=== PATIENT | female | born 1945 | race Caucasian/White ===

== ENCOUNTER → 2016-11-13 | Outpatient (CLI) | payer MEDICARE | END | disposition home or self-care (01) | LOC: CFH 12:25 | PROVIDERS: ATTEND Internal Medicine | DX: N63 Unspecified lump in breast (principal); R92.8 Other abnormal and inconclusive findings on diagnostic imaging of breast | CPT/HCPCS: 76641; G0206 ==

== ENCOUNTER 2017-01-29 01:34 | Inpatient (IN) | payer MEDICARE ==
[~2017-01-29] VITALS: Ht 162.6 cm; Wt 76.2 kg
[2017-01-29] MEDS ORDERED: LISI40TA PO (01:59)
[2017-01-29] MEDS ORDERED: SIMV20TA3 PO (02:00)
[2017-01-29] MEDS ORDERED: AMLO5TAB2 PO (02:00)
[2017-01-29] MEDS ORDERED: HYDR-883 PO (02:02)
[2017-01-29] MEDS ORDERED: ESTR30CR TP (02:03)
[2017-01-29] MEDS ORDERED: HYDROmorphone 1 MG/ML, 1ML ONE (02:25)
[2017-01-29] MEDS ORDERED: ONDANSETRON 2MG/ML, 2ML ONE (02:27)
[2017-01-29] MEDS ORDERED: ONDANSETRON 2MG/ML, 2ML IVPush ONE (02:30)
[2017-01-29] MEDS ORDERED: SODIUM CHLORIDE 0.9% 1,000ML IVBOLUS ONE (02:30)
[2017-01-29] MEDS ORDERED: SODIUM CHLORIDE FLUSH 10ML SYR IVF ONE (02:30)
[2017-01-29] MEDS ORDERED: ONDANSETRON ODT 4 MG PO ONE (02:30)
[2017-01-29] MEDS ORDERED: HYDROmorphone 1 MG/ML, 1ML IV ONE (02:30)
[2017-01-29] MEDS ORDERED: hydrALAzine 20 MG/ML, 1ML IVPush PRN (04:00)
[2017-01-29] MEDS ORDERED: OXYcodone IR 5MG TABLET PO PRN (04:00)
[2017-01-29 04:15] VITALS: BP 149/82
[2017-01-29] MEDS: ACETAMINOPHEN 325 MG TABLET PO PRN ×4 (04:34→21:04)
[2017-01-29] MEDS: SODIUM CHLORIDE 0.9% 1,000 ML IV SCH ×2 (04:34→13:39)
[2017-01-29 06:34] VITALS: BP 146/82
[2017-01-29] MEDS: morphine SULFATE 10 MG/ML, 1ML IVPush PRN ×2 (07:21→11:48)
[2017-01-29] MEDS: ONDANSETRON 2MG/ML, 2ML IVPush PRN (08:41)
[2017-01-29] MEDS: ESTROGENS CONJUGATED VAG CRM 0.625MG/1G, 30GM VG SCH (08:43)
[2017-01-29] MEDS: POLYETHYLENE GLYCOL 17 GM PACKET PO SCH (09:00)
[2017-01-29] MEDS: AMLODIPINE 5 MG TABLET PO SCH (10:46)
[2017-01-29] MEDS: LISINOPRIL 20 MG TABLET PO SCH (10:46)
[2017-01-29] MEDS: SENNA/DOCUSATE TABLET PO SCH (10:46)
[2017-01-29 14:39] VITALS: BP 152/82
[2017-01-29 20:05] VITALS: BP 155/78
[2017-01-29] MEDS ORDERED: SIMVASTATIN 20 MG TABLET PO SCH (21:00)
[2017-01-30] MEDS: ACETAMINOPHEN 325 MG TABLET PO PRN ×2 (00:59→07:25)
[2017-01-30 03:22] VITALS: BP 159/78
[2017-01-30 07:55] VITALS: BP 148/88
[2017-01-30] MEDS: POLYETHYLENE GLYCOL 17 GM PACKET PO SCH (08:32)
[2017-01-30] MEDS: LISINOPRIL 20 MG TABLET PO SCH (08:33)
[2017-01-30] MEDS: AMLODIPINE 5 MG TABLET PO SCH (08:33)
[2017-01-30] MEDS: SENNA/DOCUSATE TABLET PO SCH (08:34)
[2017-01-30] MEDS: ESTROGENS CONJUGATED VAG CRM 0.625MG/1G, 30GM VG SCH (08:34)
[2017-01-30 12:40] VITALS: BP 146/77
[2017-01-30] MEDS: ONDANSETRON 2MG/ML, 2ML IVPush PRN (12:55)
[2017-01-30] MEDS: HYDROcodone/APAP 5/325 TABLET PO PRN ×2 (13:34→16:10)
[2017-01-30] MEDS ORDERED: ONDA4TAB12 PO (15:54)
== END 2017-01-30 16:42 | disposition home or self-care (01) | DRG 563 ==
LOC: ED 01:54 → EDIP 03:10 → 4NOR 04:05 → DCLOUNGE 01-30 16:30 → UNDODISIN 01-30 16:35
PROVIDERS: ADMIT Hospitalist; ATTEND Hospitalist
DX: S42.251A Displaced fracture of greater tuberosity of right humerus, initial encounter for closed fracture (principal); E78.00 Pure hypercholesterolemia, unspecified; S42.202A Unspecified fracture of upper end of left humerus, initial encounter for closed fracture; S42.141A Displaced fracture of glenoid cavity of scapula, right shoulder, initial encounter for closed fracture; I10 Essential (primary) hypertension; G89.11 Acute pain due to trauma; W19.XXXA Unspecified fall, initial encounter; Y93.89 Activity, other specified; Y92.89 Other specified places as the place of occurrence of the external cause
CPT/HCPCS: 96361; 96374; 96375; J1170; J2405; J2270; J7030

== ENCOUNTER → 2017-12-26 | Outpatient (CLI) | payer MEDICARE ==
[~2017-12-26] MED LIST: AMLO5TAB7 PO; ESTR30CR TP; HYDR-3652 PO; LISI40TA PO; ONDA4TAB12 PO; SIMV20TA3 PO
== END | disposition home or self-care (01) ==
LOC: CFH 14:32
PROVIDERS: ATTEND Internal Medicine
DX: Z12.31 Encounter for screening mammogram for malignant neoplasm of breast (principal)
CPT/HCPCS: 77067